=== PATIENT | male | born 1965 | race Caucasian/White ===

== ENCOUNTER 2017-02-08 18:40 | Emergency (ER) | payer OTHER ==
--- NOTE | ~2017-02-08 | CR108 ---
[facility] A Service of [facility] & [facility] RADIOLOGY TEXT RESULTS PATIENT: CLEMENTE ZEE LOCATION: SED : 65 UNIT #: [id number] AGE: [address]: MESFIN DELGADO SEX: M ORDER DR: [id number] [place] [id number] E MR#: [id number] Acc #: [id number] NAME: CLEMENTE ZEE : 1965 SEX: M STUDY DATE/TIME: 02/08/2017 19:06 UNIT: SED ROOM: STUDY DESCRIPTION: CR Finger 2 View 2nd Lt Attending Physician: Mesfin Delgado Aprn Ordering Physician: Mesfin Delgado Aprn Primary Care Physician: Tip Burton M.D. MEDICAL IMAGING REPORT This report is preliminary unless electronic signature is present. EXAM Left second finger 3 views 02/08/2017 1906 hours HISTORY 51-year-old man who smashed finger in trash can this morning, complaining of pain, swelling and bruising. COMPARISON None. FINDINGS AP, lateral and oblique views demonstrate no fracture, dislocation or foreign body. IMPRESSION Negative left second finger. Dictated by... Nisreen Portillo M.D. THIS IS AN ELECTRONICALLY VERIFIED REPORT Nisreen Portillo M.D. at 02/09/2017 8:46 AM Henry TD: 02/09/2017 06:29 JOB #: [id number] MEDICAL IMAGING REPORT Page 1 of 1
[~2017-02-08 18:40] MED LIST: ACULAR10 ML OS; AMOXICILLIN875 MG PO; DENTAL BALLS; ERYTHROMYCIN O3.5 G1 OS; NO MEDICATIONS; TYLENOL #3 PO
== END 2017-02-08 19:43 | disposition home or self-care (01) ==
LOC: SED 18:40
DX: S60.022A Contusion of left index finger without damage to nail, initial encounter (principal); W22.8XXA Striking against or struck by other objects, initial encounter; F17.210 Nicotine dependence, cigarettes, uncomplicated; Z23 Encounter for immunization
CPT/HCPCS: 73140; 90471; 90715; 99283